=== PATIENT | female | born 1990 | race Caucasian/White ===

== ENCOUNTER 2018-07-26 19:45 | Emergency (ER) | payer OTHER ==
[2018-07-26 20:10] VITALS: BP 113/83; PULSE 67; RESP 20; TEMP 98.8; O2SAT 97
--- NOTE | 2018-07-26 20:13 | C.PDOC ---
History Of Present Illness 28 y/o female came to ed with kitten bite to right thumb and scratches to left lower arm that occurred about an hour ago., pt reports she has been feeding this stray kitten on the street for 2 weeks and took kitten home today and was bitten while feeding kitten. pt sts right thumb feels dec sensation on palmar surface and feels 'tight'. pt's last tdap 2014. rabies status of kitten unknown. Time Seen by Provider: 07/26/18 20:10 Chief Complaint (Nursing): Bite History Per: Patient, Family History/Exam Limitations: no limitations Onset/Duration Of Symptoms: Hrs (1) Current Symptoms Are (Timing): Still Present Location Of Injury: Right: Hand, Left: Hand Quality Of Symptoms: Painful, Other (tight) Severity: Mild - Animal Bite Description Of The Attack: Playing With Animal Description Of The Animal: Stray Reports Animal Appears: Well Reports Animal's Immunization Status: Unknown Animal Control Notified: No Past Medical History Reviewed: Historical Data, Nursing Documentation, Vital Signs Vital Signs: Last Vital Signs Temp 98.8 F 07/26/18 19:57 Pulse 67 07/26/18 19:57 Resp 20 07/26/18 19:57 BP 113/83 07/26/18 19:57 Pulse Ox 97 07/26/18 19:57 Primary Care Provider: FAMILY PROVIDER,NO - Medical History PMH: No Chronic Diseases Family History: States: Unknown Family Hx - Social History Hx Alcohol Use: No Hx Substance Use: No - Immunization History Hx Tetanus Toxoid Vaccination: No Hx Influenza Vaccination: No Hx Pneumococcal Vaccination: No Review Of Systems Constitutional: Negative for: Fever, Chills Skin: Positive for: Other (bite right thumb and scratches left forearm) Neurological: Positive for: Numbness (dec sensation right thumb). Negative for: Weakness Physical Exam - Physical Exam Appears: Non-toxic, No Acute Distress Skin: Warm, Dry, Other (1 cm shallow laceration to dorsal surface middle phalanx thumb, abrasions to distal left forearm ) Extremity: Normal ROM, Tenderness (mild dorsal right thumb, from of thumb), Capillary Refill <2 Sec (less than 2 seconds. ) Pulses: Left Radial: Normal, Right Radial: Normal Neurological/Psych: Oriented x3, Normal Speech, Normal Cognition, Normal Motor, Normal Sensation ED Course And Treatment O2 Sat by Pulse Oximetry: 97 Medical Decision Making Medical Decision Making: discussed with patient and rabies vaccine and immunoglobulin. kitten is unlikely to be rabid, being most likely from a city environment. however cannot say with 100% certainty and is recommended. pt declines rabies vaccine and immunoglobulin. pt will take augmentin. pt and advised to f/u tomorrow with their ships equipment engineer to have kitten checked and can always return to ed for rabies vaccine. Disposition Counseled Patient/Family Regarding: Diagnosis, Need For Followup, Rx Given - Disposition Referrals: [facility] [Outside] [facility] [Outside] Disposition: HOME/ ROUTINE Disposition Time: 20:48 Condition: GOOD Additional Instructions: Take Augmentin until completed, though it may cause some stomach discomfort and diarrhea. Watch bite and scratch uriostegui for any signs of infection such as sw elling, red streaks up arms, fever, purulent drainage or any other concerns- if so, return to ER right away. Discuss need for you to get rabies vaccine with ships equipment engineer tomorrow; if you want it, feel free to return to ER at any time. Tylenol for pain. Prescriptions: Amoxicillin/Clavulanate [Augmentin 875 MG-125 MG] 1 tab PO BID #20 tab Amoxicillin/Clavulanate [Augmentin 875 MG-125 MG] 1 tab PO BID #20 tab Instructions: Animal Bites (DC), Skin Abrasions (DC) Forms: [facility] (German), General Discharge Instructions - Clinical Impression Clinical Impression: Cat bite of right hand, Cat scratch of left forearm
[2018-07-26] MEDS ORDERED: Amoxicillin-Clav 875-125 mg Tab PO STA (20:36)
[2018-07-26] MEDS ORDERED: Amoxicillin-Clav 875-125 mg Tab PO ONE (20:40)
== END 2018-07-26 20:57 | disposition home or self-care (01) ==
LOC: C.ER 19:45
DX: S61.051A Open bite of right thumb without damage to nail, initial encounter (principal); S50.811A Abrasion of right forearm, initial encounter; W55.01XA Bitten by cat, initial encounter